=== PATIENT | female | born 1970 | race Caucasian/White ===

== ENCOUNTER 2021-02-12 14:10 | Emergency (ER) | payer BC ==
[2021-02-12 14:23] VITALS: BP 124/81; PULSE 104; TEMP 99.2; BMI 25.6
== END 2021-02-12 15:03 | disposition home or self-care (01) ==
LOC: FER 14:10
DX: T50.Z95A Adverse effect of other vaccines and biological substances, initial encounter (principal)
CPT/HCPCS: 99282-25